=== PATIENT | female | born 1985 | race African-American/Black ===

== ENCOUNTER 2017-05-22 16:04 | Emergency (ER) | payer BC ==
[~2017-05-22] VITALS: Ht 170.2 cm; Wt 135.9 kg
[~2017-05-22 16:04] MED LIST: ACULAR LS0.4 % OP; AMOXICILLIN500 MG OR; CLARITIN-D1 TA1 PO; DICLOFENAC SODI75 MG PO; HYDROCO/APAP1 T10 PO; HYDROCO/APAP1 TA9 PO; NEURONTIN300 MG PO; OMEPRAZOLE20 MG PO; TAM75CAP PO; ULTRAM50 M1 OR; WALKER
[2017-05-22] MEDS ORDERED: ALLEGRA-D 2424 HOUR PO (16:27)
[2017-05-22] MEDS ORDERED: FLONASE AL50 MCG/ACT (16:28)
[2017-05-22] MEDS ORDERED: OMEPRAZOLE10 MG PO (16:31)
[2017-05-22 17:46] LABS: HEMOGLOBIN 12.6 g/dl (12.0-16.0); IMMATURE GRANULOCYTES 0.3 % (0.0-1.0); MEAN CELL VOLUME 81.3 fL CALC (80.0-100.0); MEAN CORPUSCULAR HGB 25.6 pG CALC (26.0-32.0); MEAN CORPUSCULAR HGB CONC 31.5 g/L CALC (32.0-36.0); NEUT# 6.97 thou/uL (2.00-7.15); RED BLOOD COUNT 4.92 mill/uL (4.20-5.60); RED CELL DISTRI WIDTH 15.1 % (11.5-15.5)
[2017-05-22 17:49] LABS: URINE BILIRUBIN - DIPSTICK NEGATIVE (NEGATIVE); URINE BLOOD DIPSTICK LARGE (NEGATIVE); URINE COLOR YELLOW; URINE GLUCOSE - DIPSTICK NEGATIVE (NEGATIVE); URINE KETONE NEGATIVE (NEGATIVE); URINE LEUK ESTERASE NEGATIVE (Negative); URINE NITRITE - DIPSTICK NEGATIVE (Negative); URINE PROTEIN - DIPSTICK TRACE mg/dL (NEG-TRACE); URINE SPECIFIC GRAVITY >=1.030; URINE UROBILINOGEN - DIPSTICK 0.2 E.U./dL (0.2)
[2017-05-22 17:52] LABS: URINE CLARITY SLIGHT CLOUDY
[2017-05-22 17:53] LABS: URINE EPITHELIAL CELLS FEW EPI/hpf (0-FEW); URINE RBC 25-50 RBC/hpf (0-5); URINE WBC 0-2 WBC/hpf (0-5)
[2017-05-22 17:54] LABS: BARBITURATES NEGATIVE (NEGATIVE); COCAINE NEGATIVE (NEGATIVE); METHADONE NEGATIVE (NEGATIVE); OXCYCODONE NEGATIVE (NEGATIVE); TETRAHYDROCANNABIONOL NEGATIVE (NEGATIVE); TRICYLIC ANTIDEPRESSANTS NEGATIVE (NEGATIVE)
[2017-05-22 17:58] LABS: ALBUMIN 4.4 g/dL (3.2-5.0); ALKALINE PHOSPHATASE 126 u/l (38-126); ANION GAP 16 (6-22 (CALC)); BILIRUBIN, TOTAL 0.4 mg/dL (0.0-1.4); BUN 11 mg/dL (7-17); BUN/CREATININE RATIO 15 (12-20 (CALC)); CALCIUM 9.2 mg/dL (8.4-10.2); CARBON DIOXIDE 27 mmol/l (22-30); CHLORIDE 104 mmol/l (95-108); CREATININE 0.8 mg/dL (0.5-1.0); GFR > 60 ML/MIN (>=60 (CALC)); GFR FOR AFR.AMER. > 60 ML/MIN (>=60 (CALC)); GLUCOSE 96 mg/dL (65-105); POTASSIUM 3.6 mmol/l (3.5-5.1); SGOT/AST 24 u/l (14-36); SGPT/ALT 40 u/l (9-52); SODIUM 144 mmol/l (137-146); TOTAL PROTEIN 8.4 g/dL (6.3-8.2)
[2017-05-22 18:10] LABS: MYOGLOBIN 23 ng/mL (0 - 62)
[2017-05-22 19:44] VITALS: BP 132/83
== END 2017-05-22 20:09 | disposition left against medical advice (07) | DRG 93 ==
LOC: ED 16:04
PROVIDERS: Emergency Medicine
DX: R25.9 Unspecified abnormal involuntary movements (principal); F41.9 Anxiety disorder, unspecified; K21.9 Gastro-esophageal reflux disease without esophagitis; Z91.19 Patient's noncompliance with other medical treatment and regimen